=== PATIENT | female | born 1945 | race Caucasian/White ===

== ENCOUNTER 2016-06-06 13:38 | Observation (INO) ==
--- NOTE | 2016-06-06 13:51 | Emergency Department Note ---
Disposition Clinical Impression: Transient cerebral ischemia Qualifiers: Transient cerebral ischemia type: unspecified Qualified Code(s): G45.9 - Transient cerebral ischemic attack, unspecified Disposition: Admitted As Inpatient Condition: Fair Neuro HPI - General Chief Complaint: ED Neuro Symptoms/Deficit Stated Complaint: neuro symptoms LKN 1310 Time Seen by Provider: 06/06/16 13:45 Nursing Notes Reviewed: Yes Vital Signs Reviewed: Yes - History of Present Illness HPI Narrative: Chief complaint is possible stroke. History this is a 71-year-old female she said the swelling she woke up dizzy but she said that is quite frequently as she has a history of vertigo. Said about 10 minutes after one this afternoon she started having some numbness on left side her face and her left arm. No weakness now. She diseases same symptoms she had before when she had her previous stroke. The last one being in November where she had an aneurysmal bleed. She says that she has recovered well. She does have seizures since that is on Keppra. She says right now her symptoms are almost resolved. She denies any chest pain or shortness of breath. No diabetes nor hypertension or heart disease except for atrial fibrillation. She says also at the time she was on a blood thinner and they did remove her from that. Because of her risk of bleeding. Past medical history reviewed, nurse's notes reviewed medications reviewed allergies reviewed. - Related Data Allergies/Adverse Reactions: Allergies Allergy/AdvReac Type Severity Reaction Status Date / Time No Known Allergies Allergy Verified 06/06/16 13:44 Review of Systems: Positive for weakness on her left arm and numbness on the left side of her face which is resolving. All systems ED: reviewed and negative except as stated. Physical Exam Temperature is 98.3, pulse is 90, respirations are 16, BP is 138/102, sats 99%, she weighs 63.04 kg, General she is alert very pleasant and cooperative GCS is [address] and time HEENT HEENT is normocephalic PERRL EOMI, neck is supple no carotid bruits no signs of trauma Cardiovascular is a regular rate and rhythm with a heart rate of 94 consistent with atrial fibrillation Lungs are clear to auscultation bilaterally with good aeration Abdomen is soft nonsurgical good bowel sounds no masses Extremities are present 4 with good distal pulses or Refills brisk she moves all extremities has no pitting edema and has no calf tenderness dermatologic her skin is warm and dry no rash petechia or jaundice neurologic cranial nerves 2 through 12 are grossly intact she has good upper and lower motor strength some subjective weakness on the left arm. Reflexes are intact. She has no cerebellar signs. Her NIH scale is 01. Course Vital Signs Temperature 98.3 F 06/06/16 13:45 Pulse Rate 90 06/06/16 13:45 Respiratory Rate 16 06/06/16 13:45 Blood Pressure 138/102 06/06/16 13:45 O2 Sat by Pulse Oximetry 99 06/06/16 13:45 Temperature 98.3 F 06/06/16 13:45 Pulse Rate 75 06/06/16 14:42 Respiratory Rate 18 06/06/16 14:42 Blood Pressure 118/98 06/06/16 14:42 O2 Sat by Pulse Oximetry 99 06/06/16 14:42 Oxygen Delivery Oxygen Delivery Room Air Neuro Symptoms/Deficit - MDM Narrative Medical decision making narrative: At this point its uncertain if this is a stroke or TIA or something else. She is getting a stroke workup. She does not meet criteria now since she is improving for getting tPA. It is also at risk since she has had a recent aneurysmal bleed. We will contact [facility] which is our stroke center once her CT is back and read. Finger stick sugar is 1:30. Her EKG shows a atrial fibrillation, rate is 94, QRS 74, QTc is 410, no signs of acute ischemia compared this with an EKG that she had done in July and shows no changes except for rate. 1400 hrs.: I reviewed her CT and saw no signs of acute stroke or bleed. This was also confirmed by neuroradiology and they agree. Spoke with the tellastroke system at [facility]. they agree that her NIH score is 1. Does not qualify for TPA. We will finish the workup here and admit her here. Patient's in agreement with that plan. Up-to-date on her history is she has had 2 strokes in the past the last 2013 and then also in 2010 both hemorrhagic. 1440 hrs.: Patient's labs are back and looked good. Were not ago and then bring her into the hospital. Paging hospitals. Patient would like to stay here versus going to [facility]. Going to speak with neurology also about whether we should start her on aspirin or not. She is in agreement with this plan. Her critical care time exclusive A separately billable procedures is 35 minutes. 1447 hrs.: Spoke with hospitalist there going to accept the patient. Waiting on neurology's call back also. We will hold off on aspirin at this time per patient's preference. 1513 hrs.: Spoke with neurology, Dr. Estes, he said he will consult see the patient in the hospital. No further recommendations at this time. - Lab Data Result diagrams: 06/06/16 13:52 06/06/16 13:52 Lab Results 06/06/16 06/06/16 06/06/16 Range/Units 13:43 13:52 13:52 WBC 6.6 (4.3-11.1) K/mcL RBC 5.22 H (3.82-4.97) M/mcL Hgb 13.5 (11.5-15.4) g/dL Hct 42.3 (35.3-44.9) % MCV 81.0 L (83.0-100.0) fL MCH 25.9 L (28.0-33.3) pg MCHC 31.9 (31.6-35.5) g/dL RDW 15.7 H (11.5-14.5) % Plt Count 206 (140-400) K/mcL MPV 10.3 (9.4-12.4) fL Immature Gran % 0.3 (0-4) % Seg Neutrophils % 53.7 % Lymphocytes % 37.6 % Monocytes % 6.2 % Eosinophils % 1.4 % Basophils % 0.8 % Neutrophils # 3.5 (1.6-8.9) K/mcL Lymphocytes # 2.5 (0.6-4.6) K/mcL Monocytes # 0.4 (0.0-1.3) K/mcL Eosinophils # 0.1 (0.0-0.6) K/mcL Basophils # 0.1 (0.0-0.2) K/mcL PT 12.4 H (9.4-12.1) Seconds INR 1.1 APTT 28.8 (26.0-36.0) Seconds Sodium (136-145) mEq/L Potassium (3.5-4.5) mEq/L Chloride (98-109) mEq/L Carbon Dioxide (19-29) mEq/L BUN (7-20) mg/dL Creatinine (0.57-1.11) mg/dL Est GFR ( Amer) (> 60) Est GFR (Non-Af Amer) (> 60) BUN/Creatinine Ratio (6-26) Glucose (70-99) mg/dL POC Glucose 130 H (58-89) Calculated Osmolality (280-300) Calcium (8.6-10.8) mg/dL Troponin I (0-0.03) ng/mL 06/06/16 06/06/16 Range/Units 13:52 13:52 WBC (4.3-11.1) K/mcL RBC (3.82-4.97) M/mcL Hgb (11.5-15.4) g/dL Hct (35.3-44.9) % MCV (83.0-100.0) fL MCH (28.0-33.3) pg MCHC (31.6-35.5) g/dL RDW (11.5-14.5) % Plt Count (140-400) K/mcL MPV (9.4-12.4) fL Immature Gran % (0-4) % Seg Neutrophils % % Lymphocytes % % Monocytes % % Eosinophils % % Basophils % % Neutrophils # (1.6-8.9) K/mcL Lymphocytes # (0.6-4.6) K/mcL Monocytes # (0.0-1.3) K/mcL Eosinophils # (0.0-0.6) K/mcL Basophils # (0.0-0.2) K/mcL PT (9.4-12.1) Seconds INR APTT (26.0-36.0) Seconds Sodium 139 (136-145) mEq/L Potassium 3.8 (3.5-4.5) mEq/L Chloride 106 (98-109) mEq/L Carbon Dioxide 24 (19-29) mEq/L BUN 21 H (7-20) mg/dL Creatinine 0.74 (0.57-1.11) mg/dL Est GFR ( Amer) > 60 (> 60) Est GFR (Non-Af Amer) > 60 (> 60) BUN/Creatinine Ratio 28 H (6-26) Glucose 131 H (70-99) mg/dL POC Glucose (58-89) Calculated Osmolality 293 (280-300) Calcium 9.3 (8.6-10.8) mg/dL Troponin I 0.00 (0-0.03) ng/mL TPA Checklist - LKW: 3-4.5 hrs Add. Contraindications Patient/family understanding: The patient/family members have been counseled and understood the risk, benefit , and alternatives of treatment.
[2016-06-06 14:03] LABS: Basophils # 0.1 K/mcL (0.0-0.2); Basophils % 0.8 %; Eosinophils # 0.1 K/mcL (0.0-0.6); Eosinophils % 1.4 %; Hematocrit 42.3 % (35.3-44.9); Hemoglobin 13.5 g/dL (11.5-15.4); Immature Granulocytes % 0.3 % (0-4); Lymphocytes # 2.5 K/mcL (0.6-4.6); Lymphocytes % 37.6 %; Mean Corpuscular HGB Conc 31.9 g/dL (31.6-35.5); Mean Corpuscular Hemoglobin 25.9 pg (28.0-33.3); Mean Platelet Volume 10.3 fL (9.4-12.4); Monocytes # 0.4 K/mcL (0.0-1.3); Monocytes % 6.2 %; Neutrophils # 3.5 K/mcL (1.6-8.9); Red Blood Count 5.22 M/mcL (3.82-4.97); Red Cell Distribution Width 15.7 % (11.5-14.5); Segmented Neutrophils % 53.7 %
[2016-06-06 14:06] LABS: Platelet Count 206 K/mcL (140-400)
[2016-06-06 14:10] LABS: INR 1.1
[2016-06-06 14:12] LABS: Activated Partial Thrombo Time 28.8 Seconds (26.0-36.0)
[2016-06-06 14:15] LABS: Prothrombin Time 12.4 Seconds (9.4-12.1)
[2016-06-06 14:17] LABS: BUN/Creatinine Ratio 28 (6-26); Blood Urea Nitrogen 21 mg/dL (7-20); Calcium 9.3 mg/dL (8.6-10.8); Carbon Dioxide 24 mEq/L (19-29); Chloride 106 mEq/L (98-109); Glucose 131 mg/dL (70-99); Osmolality,Calculated 293 (280-300); Potassium 3.8 mEq/L (3.5-4.5); Sodium 139 mEq/L (136-145); eGFR For African Americans > 60 (> 60); eGFR For Non-African Americans > 60 (> 60)
--- NOTE | 2016-06-06 15:55 | Internal Med History&Physical ---
<Felix Alvarado - Last Filed: 06/06/16 16:57> Date of Encounter: 06/06/16 Time of Encounter: 15:41 Assessment and Plan (1) Simple partial seizure disorder Current visit: Yes Status: Acute Patient is a history of seizures since her last hemorrhagic stroke in 2013. She presented with left face numbness/tingling and left distal upper extremity numbness and tingling. This is associated with brief blurriness in her right eye this morning. Patient did not lose any consciousness, bite her tongue or lose control of her bowels or bladder. Symptoms resolved spontaneously. Patient has baseline numbness and tingling on the left side of her body, the symptoms were superimposed. Patient's home medications include Keppra 1000 mg every morning and Keppra 500 mg every afternoon. Plan: - Continue inpatient overnight monitoring. - Continue home dose of Keppra - Keppra level ordered. - Neurology has seen and evaluated the patient. - Seizure precautions. (2) Transient cerebral ischemia Current visit: Yes Status: Acute Patient's history of TIAs and 2 previous hemorrhagic strokes in 2010 and 2013. Current admission there was concern for TIA but her symptoms may be related to seizure activity. She does have irregular heart rhythm and history of atrial fibrillation. She failed warfarin therapy in the past with 2 hemorrhagic strokes which was discontinued in 2013. She currently is taking a 81 mg aspirin daily. Symptoms with current admission have resolved. Plan: - Continue 81 mg aspirin daily. - Carotid duplex bilateral ordered - Continue statin - Continue cardiac monitoring Qualifiers: Transient cerebral ischemia type: unspecified Qualified Code(s): G45.9 - Transient cerebral ischemic attack, unspecified (3) History of hemorrhagic stroke with residual hemiparesis Current visit: Yes Status: Acute Patient is a history of hemorrhagic stroke. Head CT performed upon admission with no acute intracranial abnormalities. There is mild cerebral atrophy appropriate for age. Mild chronic ischemic white matter changes also age appropriate with small old infarct of the right [place] radiata unchanged. No significant change from prior studies. (4) DVT prophylaxis Current visit: Yes Status: Acute SCDs Internal Medicine - H&P: HPI Chief complaint: Neurological deficit Admitted From: Home History of present illness: Ms. Cummings is a pleasant 71 year old female who presents from home with a chief complaint of neurological deficits. Patient states that this morning when she woke up she felt okay. She was watching TV she got up to go make lunch and as she got up she said that her right eye was blurry. This blurriness in her right eye was short-lived and resolves with under a minute. After lunch patient states of the left side of her face got numb along with left hand and arm. She denies any difficulty with speech or any loss of strength. The symptoms scared her and she decided to come to the ER. Her symptoms have all but resolved since she arrived to the emergency room. She says she has had continuous left sided tingling and numbness since her hemorrhagic stroke in 2013. Patient has had multiple TIAs in the past as well as 2 hemorrhagic strokes one in June 2010 15 November 2013. At the time of these hemorrhagic stroke she was on warfarin therapy. She says that the symptoms today felt like her TIAs and strokes in the past so she decided to come to the emergency room to be safe. Patient also states that she had seizure activity after her hemorrhagic stroke in November 2013 and she is not sure the difference between a TIA and the seizure symptoms was not sure if she was having a TIA today or seizure. Patient also has a history of A. fib which is currently being treated with cardizem. She was previously on anticoagulation (warfarin) but has since been discontinued since she had the 2 strokes. Since discontinuation of warfarin therapy she has been on 81 mg aspirin which he takes daily. She has had anginal-like symptoms in the past and she had a heart catheter done but no blockages were found and she was told that she had a "stiff heart". Patient says that she was sick about a week ago she says she had a cold she admits to dry cough but denies any fever chills nausea vomiting diarrhea constipation headache or abdominal pain. Past Med Surg Social Fam HX - Past Medical History Source: patient Medical history: atrial fibrillation (No longer anticoagulation due to previous hemorrhagic strokes), CVA (2 previous hemorrhagic strokes one in June 2010 and the other in May 2013), hypertension, seizures (Patient had one seizure after her second hemorrhagic stroke in November 2013 unsure if she has had any seizures since then), TIA (Patient states that she has had multiple TIAs prior to her strokes) Psychiatric history: no psych history - Past Surgical History Surgical History: herniorrhaphy (Right inguinal hernia repair at age 8), hip replacement (Left total hip replacement), orthopedic, other (Previous right rotator cuff repair, right Achilles repair, bilateral bunion surgeries) - Social History Smoking Status: Never smoker Smokeless Tobacco Status: No Alcohol use: none Drug use: none Current living situation: Home - Independent, With Family (Lives with ) Activity Level: Independent ambulation Internal Medicine - H&P: Meds Alendronate Sodium [Fosamax] 70 mg PO MO 06/06/16 [History] Aspirin [Lo-Dose Aspirin EC] 81 mg PO QAM 06/06/16 [History] Calcium Carbonate [Calcium] 600 mg PO QAM 06/06/16 [History] Diltiazem CD (24hr) [Cardizem CD] 120 mg PO QAM 06/06/16 [History] LevETIRAcetam [Levetiracetam] 1,000 mg PO QAM 06/06/16 [History] LevETIRAcetam [Levetiracetam] 500 mg PO QPM 06/06/16 [History] Metoprolol XL (24 HR) Succ [Toprol XL] 50 mg PO QAM 06/06/16 [History] Multivitamin [One Daily Essential] 1 tab PO QAM 06/06/16 [History] Simvastatin [Zocor] 10 mg PO QPM 06/06/16 [History] Allergies No Known Allergies Allergy (Verified 06/06/16 13:44) All Systems PM: A 10-system review of systems was performed and is negative for pertinent findings except as documented above in the HPI. - EENT Eyes: blurry vision (Blurry vision in right eye this morning that has since resolved) Ears: no ear discharge, no ear pain, no tinnitus Nose, mouth and throat: no dysphagia, no nasal discharge, no neck pain, no sore throat - Cardiovascular Cardiovascular ROS IM: irregular heart rhythm (Patient complains of numbness in her left face and left arm earlier the day that has since resolved), no chest pain, no diaphoresis, no dyspnea, no lightheadedness, no palpitations, no syncope - Respiratory Respiratory: no cough, no dyspnea, no wheezing, no excessive phlegm production - Gastrointestinal Gastrointestinal: no abdominal pain, no diarrhea, no hematemesis, no hematochezia, no melena, no nausea, no vomiting - Genitourinary Genitourinary: no change in urinary stream, no dysuria, no flank pain, no hematuria - Musculoskeletal Musculoskeletal ROS IM: no numbness, no tingling - Integumentary Integumentary IM: no rash, no unusual bruising - Neurological Neurological ROS: numbness (Patient of present illness earlier in the day that has since resolved) - Hematologic/Lymphatic Hematologic/Lymphatic: no easy bruising - Constitutional Vitals: Temp Pulse Resp BP Pulse Ox 98.3 F 75 18 122/95 99 06/06/16 13:45 06/06/16 14:42 06/06/16 15:27 06/06/16 15:27 06/06/16 14:42 General appearance: Present: cooperative, pleasant, no acute distress - Head Head exam: Present: atraumatic, normocephalic - Eye Eye exam: Present: PERRL, conjuntiva pink, sclera anicteric. Absent: EOMI ( Right eye does not abduct. Patient states that she has had a "lazy eye" since childhood) Pupils: Present: PERRL - Neck Neck exam general surgery: Present: supple, trachea midline. Absent: lymphadenopathy - Cardiovascular Cardiovascular exam: Present: irregular rhythm. Absent: diastolic murmur, gallop, rubs, systolic murmur - GI/Abdominal GI/Abdominal exam: Present: normal bowel sounds, soft, no peritoneal signs. Absent: distended, tenderness - Extremities Exam Extremities exam: Present: warm, radial pulses palpable and symetrical. Absent : calf tenderness, cyanotic, pedal edema - Neurological Exam Neurological exam: Present: alert, CN II-XII intact, oriented X3, reflexes normal, no focal deficits, strengths equal and symetr throughout. Absent: pronater drift, facial droop, speech deficit - Expanded Neurological Exam Neurological exam expanded: Present: protecting the airway. Absent: expressive aphasia, memory loss-recent event, memory loss-remote event Patient oriented to: Present: person, place, time Neuro motor strength exam: LUE: 5, RUE: 5, LLE: 5, RLE: 5 DTR: achilles tendon (L): 2+, achilles tendon (R): 2+, bicep (L): 2+, bicep (R) : 2+, patellar (L): 2+, patellar (R): 2+ Coma Scale Eye Opening: Spontaneous Coma Scale Motor Response: Obeys Commands Coma Scale Verbal Response: Oriented Coma Scale Total: 15 - Psychiatric Psychiatric exam: Present: normal affect, normal mood - Skin Skin exam: Present: dry, intact Internal Med - H&P Results - Labs CBC & Chem 7: 06/06/16 13:52 06/06/16 13:52 <Joe Wharton Rey - Last Filed: 06/06/16 19:14> Date of Encounter: 06/06/16 Assessment and Plan (1) Simple partial seizure disorder Current visit: Yes Status: Acute (2) Transient cerebral ischemia Current visit: Yes Status: Acute Qualifiers: Transient cerebral ischemia type: unspecified Qualified Code(s): G45.9 - Transient cerebral ischemic attack, unspecified (3) Atrial fibrillation Current visit: Yes Status: Acute Qualifiers: Atrial fibrillation type: chronic Qualified Code(s): I48.2 - Chronic atrial fibrillation (4) HTN (hypertension) Current visit: Yes Status: Acute Qualifiers: Hypertension type: essential hypertension Qualified Code(s): I10 - Essential (primary) hypertension (5) History of hemorrhagic stroke with residual hemiparesis Current visit: Yes Status: Acute Internal Medicine - H&P: HPI History of present illness: Ms. Cummings is a 71 year old female All Systems PM: A 10-system review of systems was performed and is negative for pertinent findings except as documented above in the HPI. - Constitutional Vitals: Temp Pulse Resp BP Pulse Ox 98.2 F 80 16 130/92 99 06/06/16 17:20 06/06/16 17:20 06/06/16 17:20 06/06/16 17:20 06/06/16 17:20 Internal Med - H&P Results - Labs CBC & Chem 7: 06/06/16 13:52 06/06/16 13:52 - Attending Attestation I examined this patient and my medical decision-making was reviewed with the Resident Physician on 06/06/16. I agree with the documented findings, disposition and treatment plan as described except to the extent set forth below. Ms. Cummings is 71y/o female with hx of hemorrhagic CVA twice presented to ED with L face and LUE parasthesias. She was evaluated in ED and placed in observation. Currently her symptoms are nearly gone. No new symptoms. No CP or SOB. Currently on Keppra. Appreciate neuro input. Exam Alert. Comfortable Heart irreg No wheeze Strength and sensation equal I/P 1. Probable simple partial seizure 2. Possible TIA 3. HTN 4. Chr a fib Further diagnoses and plan as above.
--- NOTE | 2016-06-06 16:45 | Neurology - Consult Note ---
Date of Encounter: 06/06/16 Time of Encounter: 16:43 Assessment and Plan (1) Simple partial seizure disorder Current Visit: Yes Status: Acute Differential diagnosis here includes simple partial seizure, versus transient ischemic attack, versus perhaps anxiety related symptoms. Transient ischemia is probably lower on the differential because she has had multiple episodes that are similar in nature however the CT scans have not changed in recent times. Plan he is to simply check a Keppra level, and to obtain carotid Doppler studies. She will maintain aspirin 81 mg daily. She is back to her normal baseline function therefore no therapeutic suggestions necessary. I intend to follow up with her my office after discharge. If her carotid duplex Doppler study is normal she may be discharged in the morning. History of Present Illness HPI: Ms. Cummings is a 71 year old female who is seen for neurological evaluation secondary to symptoms of transient paresthesias of the left face and left arm. At times she was simply sitting and relaxing and watching television. She was not active doing anything in particular. Symptoms came on rather abruptly. There have been some transient confusion. The total duration of the episode lasted for about 15-20 minutes. She denied any pain. She may have had some blurred vision of the right eye. She denied any weakness of the upper or lower extremities. Denied any balance or gait difficulties. Currently she feels back to her normal baseline. She has a congenital right sixth nerve palsy. Past Med Surg Social Fam HX - Past Medical History Medical history: atrial fibrillation (No longer anticoagulation due to previous hemorrhagic strokes), CVA (2 previous hemorrhagic strokes one in June 2010 and the other in May 2013), hypertension, seizures (Patient had one seizure after her second hemorrhagic stroke in November 2013 unsure if she has had any seizures since then), TIA (Patient states that she has had multiple TIAs prior to her strokes) Psychiatric history: no psych history - Past Surgical History Surgical History: herniorrhaphy (Right inguinal hernia repair at age 8), hip replacement (Left total hip replacement), orthopedic, other (Previous right rotator cuff repair, right Achilles repair, bilateral bunion surgeries) - Social History Smoking Status: Never smoker Smokeless Tobacco Status: No Alcohol use: none Drug use: none Medications and Allergies Alendronate Sodium [Fosamax] 70 mg PO MO 06/06/16 [History] Aspirin [Lo-Dose Aspirin EC] 81 mg PO QAM 06/06/16 [History] Calcium Carbonate [Calcium] 600 mg PO QAM 06/06/16 [History] Diltiazem CD (24hr) [Cardizem CD] 120 mg PO QAM 06/06/16 [History] LevETIRAcetam [Levetiracetam] 1,000 mg PO QAM 06/06/16 [History] LevETIRAcetam [Levetiracetam] 500 mg PO QPM 06/06/16 [History] Metoprolol XL (24 HR) Succ [Toprol XL] 50 mg PO QAM 06/06/16 [History] Multivitamin [One Daily Essential] 1 tab PO QAM 06/06/16 [History] Simvastatin [Zocor] 10 mg PO QPM 06/06/16 [History] Allergies No Known Allergies Allergy (Verified 06/06/16 13:44) All Systems: A 10-system review of systems was performed and is negative for pertinent findings except as documented above in the HPI. Review of Systems: 10 point review of systems is consistent with a history of present illness and otherwise negative. Physical Examination - Vital Signs Vital Signs: Initial Vital Signs Temp Pulse Resp BP Pulse Ox 98.3 F 90 16 138/102 99 06/06/16 13:45 06/06/16 13:45 06/06/16 13:45 06/06/16 13:45 06/06/16 13:45 - Exam Exam: For mental status functions Gale is awake and alert and oriented 3. She follows commands and answers questions appropriately. There is no acknowledging aphasia or apraxia. Pupils are equal and reactive to light and accommodation. Extraocular motility of the left eye is intact. She has a congenital sixth nerve palsy on the right. Sensation to the face is intact. However she has a nonphysiologic discrepancy in the ability to identify vibration on the left skull versus the right skull. She seems to feel that his decreased on the left. Motor function of the face is symmetric bilaterally. No facial asymmetry is identified. Hearing is intact symmetrically. Tongue is midline. - Neurologic Detailed motor examination: full strength in all major muscle groups Detailed sensory examination: intact Reflex and gait examination: intact Reflexes: Biceps: 1+, Triceps: 1+, Brachioradialis: 1+, Patella: 1+, Achilles: 1 + Cerebellar examination: no dysmetria, performs finger to nose and heel to teague symmetrically without ataxia, no gait ataxia, no truncal ataxia, no difficulty with rapid alternating movements Results - Laboratory Findings CBC and BMP: 06/06/16 13:52 06/06/16 13:52 Abnormal lab findings: Abnormal lab results RBC 5.22 M/mcL (3.82-4.97) H 06/06/16 13:52 MCV 81.0 fL (83.0-100.0) L 06/06/16 13:52 MCH 25.9 pg (28.0-33.3) L 06/06/16 13:52 RDW 15.7 % (11.5-14.5) H 06/06/16 13:52 PT 12.4 Seconds (9.4-12.1) H 06/06/16 13:52 BUN 21 mg/dL (7-20) H 06/06/16 13:52 BUN/Creatinine Ratio 28 (6-26) H 06/06/16 13:52 Glucose 131 mg/dL (70-99) H 06/06/16 13:52 POC Glucose 130 (58-89) H 06/06/16 13:43 Consult Discharge Plan - Plan Referrals: NO,PCP [Primary Care Provider] -
[2016-06-06] MEDS ORDERED: Naloxone 0.4 MG/ML INJ IVP PRN (16:52)
[2016-06-06] MEDS ORDERED: Acetaminophen 325 MG TABLET PO PRN (16:52)
[2016-06-06] MEDS ORDERED: Ondansetron 4 MG/2 ML VIAL IVP PRN (16:52)
[2016-06-06] MEDS ORDERED: levETIRAcetam 250 MG TABLET PO SCH (18:00)
[2016-06-06] MEDS: Pantoprazole 40 MG VIAL IVP SCH (18:38)
--- NOTE | 2016-06-06 22:07 | Carotid Imaging Report ---
Carotid Duplex Patient Name:Gale Cummings Order Number:[id number] Procedure Date:06/06/2016 Date:5Age:71 yrs Gender:Female Rt.BP:130 / 92 mmHgHeart Rate: Location:[facility] Room #: 2NE30 Auto Garage Mechanic:Sabina Hoffman RDCS Referring MD:Felix Alvarado DO fibrous wallboard inspector:None Reading MD:Alexander Fuller MD Primary Indications:Stroke like symptoms Risk Factors Yes/No Hypertension Yes Hypercholesterolemia Yes Hx of CVA Yes Hx of TIA Yes Impressions: The bilateral carotid arteries are normal throughout. Findings Carotid Duplex: Jeffers scale imaging combined with Doppler flow analysis suggests normal findings bilaterally. Right: The right proximal common carotid artery has a PSV of 55 cm/s and a EDV of 17 cm/s. The right mid common carotid artery has a PSV of 61 cm/s and a EDV of 21 cm/s. The right distal common carotid artery has a PSV of 44 cm/s and a EDV of 16 cm/s. The right bifurcation has a PSV of 48 cm/s and a EDV of 11 cm/s. The right proximal internal carotid artery has a PSV of 35 cm/s and a EDV of 13 cm/s. The right mid internal carotid artery has a PSV of 56 cm/s and a EDV of 18 cm/s. The right distal internal carotid artery has a PSV of 72 cm/s and a EDV of 30 cm/s. The right eca has a PSV of 92 cm/s and a EDV of 16 cm/s. The right vertebral artery has a PSV of 54 cm/s and a EDV of 11 cm/s. There is antegrade spectral Doppler flow patterns. Left: The left proximal common carotid artery has a PSV of 67 cm/s and a EDV of 18 cm/s. The left mid common carotid artery has a PSV of 65 cm/s and a EDV of 19 cm/s. The left distal common carotid artery has a PSV of 60 cm/s and a EDV of 21 cm/s. The left bifurcation has a PSV of 44 cm/s and a EDV of 13 cm/s. The left proximal internal carotid artery has a PSV of 39 cm/s and a EDV of 13 cm/s. The left mid internal carotid artery has a PSV of 56 cm/s and a EDV of 22 cm/s. The left distal internal carotid artery has a PSV of 65 cm/s and a EDV of 28 cm/s. The left eca has a PSV of 91 cm/s and a EDV of 15 cm/s. The left vertebral artery has a PSV of 80 cm/s and a EDV of 21 cm/s. There is antegrade spectral Doppler flow patterns. Prior Study: No prior study available for comparison. Carotid Results Right PSV EDV Assessment Proximal CCA 55 17 Mid CCA 61 21 Distal CCA 44 16 Bifurcation 48 11 Proximal ICA 35 13 Mid ICA 56 18 Distal ICA 72 30 ECA 92 16 Vertebral Artery 54 11 Antegrade Flow Left PSV EDV Assessment Proximal CCA 67 18 Mid CCA 65 19 Distal CCA 60 21 Bifurcation 44 13 Proximal ICA 39 13 Mid ICA 56 22 Distal ICA 65 28 ECA 91 15 Vertebral Artery 80 21 Antegrade Flow Ratio's Right ICA/CCA Ratio: 1.18 ICA/CCA Values: 72/61 Left ICA/CCA Ratio: 1.00 ICA/CCA Values: 65/65 Updated by Alexander Fuller MD on 06/06/2016 10:02:27 PM electronically signed on 06/06/2016 10:02:51 PM with status of Final
[2016-06-07 05:17] LABS: Basophils # 0.1 K/mcL (0.0-0.2); Basophils % 0.9 %; Eosinophils # 0.1 K/mcL (0.0-0.6); Eosinophils % 1.7 %; Hematocrit 41.1 % (35.3-44.9); Hemoglobin 13.1 g/dL (11.5-15.4); Immature Granulocytes % 0.3 % (0-4); Lymphocytes # 2.5 K/mcL (0.6-4.6); Lymphocytes % 42.4 %; Mean Corpuscular HGB Conc 31.9 g/dL (31.6-35.5); Mean Corpuscular Hemoglobin 25.8 pg (28.0-33.3); Mean Corpuscular Volume 80.9 fL (83.0-100.0); Mean Platelet Volume 10.4 fL (9.4-12.4); Monocytes # 0.5 K/mcL (0.0-1.3); Monocytes % 8.4 %; Neutrophils # 2.7 K/mcL (1.6-8.9); Platelet Count 195 K/mcL (140-400); Red Blood Count 5.08 M/mcL (3.82-4.97); Red Cell Distribution Width 15.8 % (11.5-14.5); Segmented Neutrophils % 46.3 %
[2016-06-07 05:35] LABS: Alanine Aminotransferase 18 Units/L (0-55); Albumin 3.5 g/dL (3.5-5.0); Albumin/Globulin Ratio 1.2 (1.1-2.2); Alkaline Phosphatase 48 Units/L (38-126); Aspartate Amino Transferase 17 Units/L (5-34); BUN/Creatinine Ratio 21 (6-26); Bilirubin,Total 0.4 mg/dL (0.2-1.2); Blood Urea Nitrogen 15 mg/dL (7-20); Calcium 8.9 mg/dL (8.6-10.8); Carbon Dioxide 21 mEq/L (19-29); Chloride 111 mEq/L (98-109); Chol/HDL Ratio 2.4 (0-4.9); Cholesterol 155 mg/dL (< 200); Glucose 95 mg/dL (70-99); HDL Cholesterol 65 mg/dL (40-59); LDL Cholesterol,Calculated 75 mg/dL (0-99); Osmolality,Calculated 295 (280-300); Potassium 3.6 mEq/L (3.5-4.5); Sodium 142 mEq/L (136-145); Total Protein 6.5 g/dL (6.0-8.3); Triglycerides 73 mg/dL (< 150); eGFR For African Americans > 60 (> 60); eGFR For Non-African Americans > 60 (> 60)
[2016-06-07] MEDS ORDERED: levETIRAcetam 250 MG TABLET PO SCH (09:00)
[2016-06-07] MEDS ORDERED: Metoprolol XL (24 HR) Succ 50 MG TAB.ER.24H PO SCH (09:00)
[2016-06-07] MEDS ORDERED: Aspirin Enteric Coated 81 MG Tablet PO SCH (09:00)
[2016-06-07] MEDS ORDERED: Diltiazem CD (24hr) 120 MG CAPSULE PO SCH (09:00)
[2016-06-07] MEDS: Pantoprazole 40 MG VIAL IVP SCH (09:12)
[2016-06-07 11:33] VITALS: BP 131/94
--- NOTE | 2016-06-07 12:11 | Discharge Summary ---
Date of Encounter: 06/07/16 Time of Encounter: 12:11 - Discharge Diagnosis (1) Simple partial seizure disorder Priority: Primary Status: Acute (2) Transient cerebral ischemia Priority: Primary Status: Acute Qualifiers: Qualified Code(s): G45.9 - Transient cerebral ischemic attack, unspecified (3) Atrial fibrillation Priority: Secondary Status: Chronic Qualifiers: Qualified Code(s): I48.2 - Chronic atrial fibrillation (4) HTN (hypertension) Priority: Secondary Status: Chronic Qualifiers: Qualified Code(s): I10 - Essential (primary) hypertension (5) History of hemorrhagic stroke with residual hemiparesis Priority: Secondary Status: Chronic (6) Visual changes Priority: Secondary Status: Acute - Discharge Medications Home Medications: Alendronate Sodium [Fosamax] 70 mg PO MO 06/06/16 [History] Aspirin [Lo-Dose Aspirin EC] 81 mg PO QAM 06/06/16 [History] Calcium Carbonate [Calcium] 600 mg PO QAM 06/06/16 [History] Diltiazem CD (24hr) [Cardizem CD] 120 mg PO QAM 06/06/16 [History] LevETIRAcetam [Levetiracetam] 1,000 mg PO QAM 06/06/16 [History] LevETIRAcetam [Levetiracetam] 500 mg PO QPM 06/06/16 [History] Metoprolol XL (24 HR) Succ [Toprol Xl] 50 mg PO QAM 06/06/16 [History] Multivitamin [One Daily Essential] 1 tab PO QAM 06/06/16 [History] Simvastatin [Zocor] 10 mg PO QPM 06/06/16 [History] Allergies/Adverse Reactions: Allergies No Known Allergies Allergy (Verified 06/06/16 13:44) Procedures/tests Complete & Pending: Procedures Performed prior 72 hours Category Date Time Status MR head/brain wo con [MR] Routine MRI 06/07/16 11:52 Ordered EV carotid duplex imaging BI Routine Y 06/06/16 16:51 Completed Date of admission: 06/06/16 14:51 Primary care physician: PCP NO Consults: 06/06/16 14:52 Consult to Neurology [CONS] Routine Consulting Provider: Neurology [facility] Reason for Consult: TIA vs CVA Time Notified: 14:52 Call Completed: Yes Discharging clinician: Joe Wharton Anticipated date of discharge: 06/07/16 - Patient Status Disposition: Home, Self-Care Condition: Good Functional capacity at discharge: independent ambulation Overall status at discharge: patient is back to baseline - Discharge Instructions Follow Up With: POLLY,PCP [Primary Care Provider] - Additional Instructions: Follow up with Dr. Estes in 1-2- weeks - Diet and Activity Activity: resume usual activities as tolerated Diet: advance to your usual diet Hospital course: Ms. Cummings is a 71 year old female with history of hemorrhagic CVA x2 in past presented to ED with parasthesias. She was evaluated and subsequently placed in observation for further evaluation and treatment. Ms. Cummings was placed in observation on med tele. She was continued on her home medications. Gradually her symptoms improved. She was evaluated by neurology and carotid doppler was arranged. The presumption was a simple partial seizure. Carotid dopplers ultimately were negative. In the AM of 06/07/16 she described some visual changes. MRI of head was done which showed no new changes. At that time she was felt stable for discharge home with outpatient follow up. I did discuss with patient and her that if she has any new visual symptoms that she should go to ED to be evaluated. She is going to make an eye appt on Thursday and I gave her my card to have them contact me if anything else is needed. - Time Spent with Patient Total time spent providing and/or coordinating discharge services: 40min - Constitutional Vitals: Temp Pulse Resp BP Pulse Ox 98.2 F 83 15 131/94 97 06/07/16 11:31 06/07/16 11:31 06/07/16 11:31 06/07/16 11:31 06/07/16 11:31 General appearance: Present: cooperative, pleasant, no acute distress - Head Head exam: Present: normocephalic - Eye Eye exam: Present: EOMI, normal appearance, conjuntiva pink Pupils: Present: PERRL - ENT ENT exam: Present: mucous membranes dry - Respiratory Respiratory exam: Present: CTAB. Absent: rhonchi, wheezes - Cardiovascular Cardiovascular exam: Present: irregular rhythm. Absent: tachycardia - GI/Abdominal GI/Abdominal exam: Present: soft. Absent: tenderness - Extremities Exam Extremities exam: Present: warm. Absent: pedal edema - Neurological Exam Neurological exam: Present: alert, oriented X3, no focal deficits - Psychiatric Psychiatric exam: Present: normal affect, normal mood - Skin Skin exam: Present: warm. Absent: rash - VTE Documentation of Mechanical Device: Graduated compression elastic hosiery
--- NOTE | 2016-06-07 16:39 | Neurology Progress Note ---
Date of Encounter: 06/07/16 Time of Encounter: 16:30 Assessment and Plan (1) Simple partial seizure disorder Current Visit: Yes Status: Acute (2) Visual disturbance of one eye Current Visit: Yes Status: Acute Gale has developed an acute deficit of the right eye. This only involves the right eye and is therefore a prechiasmatic event. It does not seem to be consistent with amaurosis fugax. Perhaps this is a refractory or retinal problem. I will reevaluate her at your request. Consider Opthalmology eval. Subjective Interval history: I had the pleasure of following up with Gale today regarding an acute visual disturbance involving the right eye. She describes a blemish in the visual field of the right eye that looks like a " fold" She denies any pain. The defect does not seem to float or mariana. She denies amaurosis fugax. She denies any involvement of the left eye. Denies any new somatic sx. I did review the MRI which does not reveal any evidence of an acute process. Neuroloic exam is unchanged in comparison to yesterday Objective - Constitutional Vitals: Temp Pulse Resp BP Pulse Ox 98.2 F 83 15 131/94 97 06/07/16 11:31 06/07/16 11:31 06/07/16 11:31 06/07/16 11:31 06/07/16 11:31 - Neurological Exam Motor Examination: Present: full strength in all major muscle groups Sensation intact: Present: intact Reflex and gait examination: intact Cranial nerve examination: Present: PERRL, corneal reflexes brisk symmetrically , sensory to face intact, mastication intact, no facial asymmetry is present, no dysarthria Cerebellar examination: Present: no dysmetria, performs finger to nose and heel to teague symmetrically without ataxia, no gait ataxia, no truncal ataxia, no difficulty with rapid alternating movements - VTE Documentation of Mechanical Device: Graduated compression elastic hosiery Results - Laboratory Findings CBC and BMP: 06/07/16 04:55 06/07/16 04:55 Abnormal lab findings: Abnormal lab results RBC 5.08 M/mcL (3.82-4.97) H 06/07/16 04:55 MCV 80.9 fL (83.0-100.0) L 06/07/16 04:55 MCH 25.8 pg (28.0-33.3) L 06/07/16 04:55 RDW 15.8 % (11.5-14.5) H 06/07/16 04:55 PT 12.4 Seconds (9.4-12.1) H 06/06/16 13:52 Chloride 111 mEq/L (98-109) H 06/07/16 04:55 POC Glucose 130 (58-89) H 06/06/16 13:43 HDL Cholesterol 65 mg/dL (40-59) H 06/07/16 04:55 Consult Discharge Plan - Plan Referrals: NO,PCP [Primary Care Provider] -
== END 2016-06-07 18:30 | disposition home or self-care (01) ==
LOC: EMEROO 13:38 → 2NENU 13:38
PROVIDERS: ADMIT Internal Medicine; ATTEND Internal Medicine

== ENCOUNTER 2018-12-13 21:49 | Observation (INO) ==
--- NOTE | 2018-12-13 22:19 | Emergency Department Note ---
Disposition Clinical Impression: Facial numbness, Tingling of both upper extremities Disposition: Still a Patient Condition: Good Referrals: Felix Flores DO [Primary Care Provider] - Forms: ED Satisfaction Letter Time of Disposition: 00:31 General Adult HPI - General Chief complaint: ED Neuro Symptoms/Deficit Stated complaint: possible stroke Time Seen by Provider: 12/13/18 22:00 Source: EMS Limitations: no limitations Nursing Notes Reviewed: Yes Vital Signs Reviewed: Yes - History of Present Illness HPI Narrative: 73-year-old female who presents emergency department with complaints of left- sided facial tingling and bilateral upper extremity tingling. This occurred just prior to arrival and has since resolved per the patient. Patient states t hat she was breathing quite quickly felt anxious and had occurrence of the symptoms. She states she has had multiple previous hemorrhagic strokes and was concerned about possible stroke but also believes it may be related to her anxiety as she has had panic attacks previously and she did state she was hyperventilating. The patient has no symptoms at this time. She did recently have surgery of her left hip recently and has difficulty moving the splint following surgery. She otherwise states she has had no fever, chills, chest pain, shortness of breath, nausea, weakness. is available and states she has had no slurred speech, focal weakness, or confusion. Pain Scale: 0 - Related Data Home Medications Medication Instructions Recorded Confirmed Alendronate Sodium [Fosamax] 70 mg PO MO 06/06/16 10/27/17 Aspirin [Lo-Dose Aspirin EC] 81 mg PO QAM 06/06/16 10/27/17 Calcium Carbonate [Calcium] 600 mg PO QAM 06/06/16 10/27/17 Diltiazem CD (24hr) [Cardizem CD] 120 mg PO QAM 06/06/16 10/27/17 Metoprolol XL (24 HR) Succ [Toprol 50 mg PO QAM 06/06/16 10/27/17 Xl] Multivitamin [One Daily Essential] 1 tab PO QAM 06/06/16 10/27/17 Simvastatin [Zocor] 10 mg PO QPM 06/06/16 10/27/17 levETIRAcetam [Levetiracetam] 1,000 mg PO QAM 06/06/16 10/27/17 levETIRAcetam [Levetiracetam] 500 mg PO QPM 06/06/16 10/27/17 Allergies Allergy/AdvReac Type Severity Reaction Status Date / Time No Known Allergies Allergy Verified 10/27/17 08:28 Review of Systems: ROS per history of present illness, all other systems reviewed and negative or normal. All systems ED: reviewed and negative except as stated. Review of Systems: As Per HPI Past Medical History - Past Medical History Medical history: Reports: atrial fibrillation, CVA, hypertension, seizures, TIA Surgical history: Reports: herniorrhaphy, hip replacement, orthopedic, other Psychiatric history: Reports: no psych history TRAINING SPECIALIST history: Reports: no TRAINING SPECIALIST history - Social History Smoking Status: Never smoker Smokeless Tobacco Status: No Alcohol use: Reports: none Drug use: Reports: none Physical Exam General: Conversant. No apparent distress. Follow commands. Appears stated age. Neck: No JVD. Trachea midline. Neck supple. Eyes: PERRL. No scleral icterus. HENT: Normocephalic and atraumatic. Moist mucus membranes. Cardiovascular: Regular rate and rhythm. Normal S1 and S2. No murmurs appreciated. Normal capillary refill. Extremities well perfused with 2+ distal pulses bilaterally. No edema. Pulmonary: Normal and equal breath sounds bilaterally, anteriorly and posteriorly. No wheezes, rales, or rhonchi. Not in respiratory distress. Speaks in full sentences. Abdomen: Soft, nondistended, and tontender. No bruits or masses. No guarding. Neuro: Alert and oriented to person, place, and time. CN II-XII tested and grossly intact. No hemineglect. Speech is fluid and without slurring. Sensory: Sensation intact to light touch in all extremities. Motor: Normal tone and bulk. No pronator drift. 5/5 strength in LUE 5/5 strength in RUE 5/5 strength in LLE 5/5 strength in RLE Coordination: Finger to nose and heel to teague testing intact bilaterally. Reflexes: Brachioradialis, biceps, and patellar reflexes 2+ and symmetric bilaterally. Skin: No rashes noted on visualized skin. Musculoskeletal: No bony abnormalities visualized. Moves all extremities. Psych: Normal mood. Pleasant. Makes appropriate eye contact. - General Limitations: no limitations General appearance: alert, in no apparent distress Course - Reevaluation(s) Reevaluation #1: Patient attempting to provide urine sample. She is anxious, tachycardic, and tearful on exam. Will treat for anxiety. Time: 23:29 Reevaluation #2: Patient reassessed and continues to be anxious, restless, picking at the equipment and slightly tearful on exam. She does not believe this was a stroke and does believe this is secondary to her hyperventilating and anxiety. Has been requests admission as she continues to be persistently anxious at home but he is also agreement that this was likely not a stroke consistent with her previous symptoms. She was given 1 mg by mouth Ativan. We will repeat dosing the IM and reassessed the patient. Encouraged her to follow up with a therapist or psychiatrist or with her primary care physician as this does appear to be a long-standing and chronic issue. Time: 00:27 Vital Signs Temperature 97.7 F 12/13/18 21:57 Pulse Rate 87 12/13/18 21:57 Respiratory Rate 20 12/13/18 21:57 Blood Pressure 133/85 12/13/18 21:57 O2 Sat by Pulse Oximetry 99 12/13/18 21:57 Temperature 97.7 F 12/13/18 21:57 Pulse Rate 87 12/13/18 21:57 Respiratory Rate 20 12/13/18 21:57 Blood Pressure 133/85 12/13/18 21:57 O2 Sat by Pulse Oximetry 99 12/13/18 21:57 Oxygen Delivery Oxygen Delivery Room Air Medical Decision Making - [facility] Narrative Medical decision making narrative: 73-year-old female with history of multiple strokes who presents emergency department with concern for left-sided facial and bilateral upper extremity numbness. Symptoms started just prior to arrival but has since resolved. EMS notes glucose in the 80s. NIH performed immediately upon arrival and the patient has an NIH score of 0. Her symptoms have completely resolved. She is alert and oriented 3 without facial droop, slurred speech, decreased sensation or focal neurologic deficits. Stroke alert was not initiated given the resolution of symptoms. The patient did have a stroke evaluation including CT head, CBC, BMP, urinalysis, EKG. CT head shows no evidence of acute intracranial pathology including hemorrhage. EKG shows no acute abnormalities. Laboratory evaluation shows no significant leukocytosis, anemia, electrolyte abnormality. No evidence of urinary tract infection. The patient states she became significantly anxious and tearful. She notes that she was never told she has anxiety but do believe the majority of her symptoms are stemming from anx iety and confirms she has been this anxious at home for quite some time. They both are in agreement that this likely was not secondary to acute stroke. One dose of Ativan given to the patient here in the emergency department. She was reassessed and continues to be anxious. Will trial repeat dosing of ativan here in the ED. Patients disposition pending. Please see Dr. Almeida note for final disposition. - Medical Records Medical records reviewed: Yes I reviewed the patient's medical records. - Lab Data Lab results reviewed: Yes I reviewed the patient's lab results. Result diagrams: 12/13/18 22:07 12/13/18 22:07 Lab Results 12/13/18 12/13/18 12/13/18 Range/Units 22:07 22:07 22:07 WBC 6.8 (4.3-11.1) K/mcL RBC 4.42 (3.82-4.97) M/mcL Hgb 11.6 (11.5-15.4) g/dL Hct 36.8 (35.3-44.9) % MCV 83.3 (83.0-100.0) fL MCH 26.2 L (28.0-33.3) pg MCHC 31.5 L (31.6-35.5) g/dL RDW 15.2 H (11.5-14.5) % Plt Count 228 (140-400) K/mcL MPV 10.2 (9.4-12.4) fL Immature Gran % 0.6 (0-4) % Seg Neutrophils % 60.9 % Lymphocytes % 30.0 % Monocytes % 6.0 % Eosinophils % 1.8 % Basophils % 0.7 % Neutrophils # 4.2 (1.6-8.9) K/mcL Lymphocytes # 2.0 (0.6-4.6) K/mcL Monocytes # 0.4 (0.0-1.3) K/mcL Eosinophils # 0.1 (0.0-0.6) K/mcL Basophils # 0.1 (0.0-0.2) K/mcL PT 11.6 (9.4-12.1) Seconds INR 1.0 APTT 32.0 (26.0-36.0) Seconds Sodium 140 (136-145) mEq/L Potassium 3.6 (3.5-5.1) mEq/L Chloride 110 H (98-107) mEq/L Carbon Dioxide 20 L (23-29) mEq/L BUN 17 (8-23) mg/dL Creatinine 0.74 (0.60-1.20) mg/dL Est GFR ( Amer) > 60 (> 60) Est GFR (Non-Af Amer) > 60 (> 60) BUN/Creatinine Ratio 23 (6-26) Glucose 106 H (70-105) mg/dL Calculated Osmolality 292 (280-300) Calcium 9.2 (8.6-10.3) mg/dL Magnesium 2.3 (1.6-2.6) mg/dL TSH 3.678 (0.340-5.600) mcIU/mL - Radiology Data Radiology results reviewed: Yes I reviewed the patient's radiology results. Head CT 12/13/18 22:17 IMPRESSION: No acute intracranial abnormality. D/ / Darrin Dinero / Darrin Dinero Interpreting Provider: Darrin Dineor - EKG Data EKG #1 EKG attestation: Yes I reviewed and interpreted this EKG. EKG results narrative: Atrial fibrillation rate of 86. No acute ischemic ST or T wave abdomen rounded. There is slight T-wave inversions in V1. Compared with prior from 07/25/14 there are no significant changes. T wave abnormality seen on this EKG. Attestation Statement - Attestation Attestation: I, Eric Ojeda DO, examined this patient [id number] and my medical decision-making was reviewed with Dr. Radha Balderas, Resident Physician. I agree with the documented findings, disposition and treatment plan as described except to the extent set forth below. I personally supervised and was present for the lemos/critical portions of the procedures completed by the resident documented below. Please see my progress notes for details.
[2018-12-13 22:23] LABS: Basophils # 0.1 K/mcL (0.0-0.2); Basophils % 0.7 %; Eosinophils # 0.1 K/mcL (0.0-0.6); Eosinophils % 1.8 %; Hematocrit 36.8 % (35.3-44.9); Hemoglobin 11.6 g/dL (11.5-15.4); Immature Granulocytes % 0.6 % (0-4); Mean Corpuscular HGB Conc 31.5 g/dL (31.6-35.5); Mean Corpuscular Hemoglobin 26.2 pg (28.0-33.3); Mean Corpuscular Volume 83.3 fL (83.0-100.0); Mean Platelet Volume 10.2 fL (9.4-12.4); Monocytes # 0.4 K/mcL (0.0-1.3); Neutrophils # 4.2 K/mcL (1.6-8.9); Platelet Count 228 K/mcL (140-400); Red Blood Count 4.42 M/mcL (3.82-4.97); Red Cell Distribution Width 15.2 % (11.5-14.5); Segmented Neutrophils % 60.9 %; White Blood Count 6.8 K/mcL (4.3-11.1)
[2018-12-13 22:31] LABS: Prothrombin Time 11.6 Seconds (9.4-12.1)
[2018-12-13 22:49] LABS: BUN/Creatinine Ratio 23 (6-26); Blood Urea Nitrogen 17 mg/dL (8-23); Calcium 9.2 mg/dL (8.6-10.3); Carbon Dioxide 20 mEq/L (23-29); Chloride 110 mEq/L (98-107); Glucose 106 mg/dL (70-105); Magnesium 2.3 mg/dL (1.6-2.6); Osmolality,Calculated 292 (280-300); Potassium 3.6 mEq/L (3.5-5.1); Sodium 140 mEq/L (136-145); eGFR For African Americans > 60 (> 60); eGFR For Non-African Americans > 60 (> 60)
[2018-12-13 22:55] LABS: Thyroid Stimulating Hormone 3.678 mcIU/mL (0.340-5.600)
--- NOTE | 2018-12-13 23:01 | Emergency Department Note ---
Disposition Clinical Impression: Facial numbness, Tingling of both upper extremities Disposition: Admitted As Inpatient Condition: Fair Referrals: Felix Flores DO [Primary Care Provider] - Forms: ED Satisfaction Letter Time of Disposition: : General Adult HPI - General Chief complaint: ED Neuro Symptoms/Deficit Stated complaint: possible stroke Time Seen by Provider: 12/13/18 22:00 Source: EMS Limitations: no limitations - History of Present Illness Pain Scale: 0 - Related Data Home Medications Medication Instructions Recorded Confirmed Alendronate Sodium [Fosamax] 70 mg PO MO 06/06/16 10/27/17 Aspirin [Lo-Dose Aspirin EC] 81 mg PO QAM 06/06/16 10/27/17 Calcium Carbonate [Calcium] 600 mg PO QAM 06/06/16 10/27/17 Diltiazem CD (24hr) [Cardizem CD] 120 mg PO QAM 06/06/16 10/27/17 Metoprolol XL (24 HR) Succ [Toprol 50 mg PO QAM 06/06/16 10/27/17 Xl] Multivitamin [One Daily Essential] 1 tab PO QAM 06/06/16 10/27/17 Simvastatin [Zocor] 10 mg PO QPM 06/06/16 10/27/17 levETIRAcetam [Levetiracetam] 1,000 mg PO QAM 06/06/16 10/27/17 levETIRAcetam [Levetiracetam] 500 mg PO QPM 06/06/16 10/27/17 Allergies Allergy/AdvReac Type Severity Reaction Status Date / Time No Known Allergies Allergy Verified 10/27/17 08:28 Past Medical History - Past Medical History Medical history: Reports: atrial fibrillation, CVA, hypertension, seizures, TIA Surgical history: Reports: herniorrhaphy, hip replacement, orthopedic, other Psychiatric history: Reports: no psych history [employer] history: Reports: no [employer] history - Social History Smoking Status: Never smoker Smokeless Tobacco Status: No Alcohol use: Reports: none Drug use: Reports: none Physical Exam - General Limitations: no limitations General appearance: alert, in no apparent distress Course Vital Signs Temperature 97.7 F 12/13/18 21:57 Pulse Rate 87 12/13/18 21:57 Respiratory Rate 20 12/13/18 21:57 Blood Pressure 133/85 12/13/18 21:57 O2 Sat by Pulse Oximetry 99 12/13/18 21:57 Temperature 97.7 F 12/13/18 21:57 Pulse Rate 87 12/13/18 21:57 Respiratory Rate 20 12/13/18 21:57 Blood Pressure 133/85 12/13/18 21:57 O2 Sat by Pulse Oximetry 99 12/13/18 21:57 Oxygen Delivery Oxygen Delivery Room Air Medical Decision Making - Lab Data Result diagrams: 12/13/18 22:07 12/13/18 22:07 Lab Results 12/13/18 12/13/18 12/13/18 Range/Units 22:07 22:07 22:07 WBC 6.8 (4.3-11.1) K/mcL RBC 4.42 (3.82-4.97) M/mcL Hgb 11.6 (11.5-15.4) g/dL Hct 36.8 (35.3-44.9) % MCV 83.3 (83.0-100.0) fL MCH 26.2 L (28.0-33.3) pg MCHC 31.5 L (31.6-35.5) g/dL RDW 15.2 H (11.5-14.5) % Plt Count 228 (140-400) K/mcL MPV 10.2 (9.4-12.4) fL Immature Gran % 0.6 (0-4) % Seg Neutrophils % 60.9 % Lymphocytes % 30.0 % Monocytes % 6.0 % Eosinophils % 1.8 % Basophils % 0.7 % Neutrophils # 4.2 (1.6-8.9) K/mcL Lymphocytes # 2.0 (0.6-4.6) K/mcL Monocytes # 0.4 (0.0-1.3) K/mcL Eosinophils # 0.1 (0.0-0.6) K/mcL Basophils # 0.1 (0.0-0.2) K/mcL PT 11.6 (9.4-12.1) Seconds INR 1.0 APTT 32.0 (26.0-36.0) Seconds Sodium 140 (136-145) mEq/L Potassium 3.6 (3.5-5.1) mEq/L Chloride 110 H (98-107) mEq/L Carbon Dioxide 20 L (23-29) mEq/L BUN 17 (8-23) mg/dL Creatinine 0.74 (0.60-1.20) mg/dL Est GFR ( Amer) > 60 (> 60) Est GFR (Non-Af Amer) > 60 (> 60) BUN/Creatinine Ratio 23 (6-26) Glucose 106 H (70-105) mg/dL Calculated Osmolality 292 (280-300) Calcium 9.2 (8.6-10.3) mg/dL Magnesium 2.3 (1.6-2.6) mg/dL TSH 3.678 (0.340-5.600) mcIU/mL Urine Color (Yellow) Urine Clarity (Clear) Urine pH (5.0-8.0) pH Units Ur Specific [place] (1.010-1.025) Urine Protein (Neg-Trace) mg/dL Urine Glucose (UA) (Normal) mg/dL Urine Ketones (Negative) mg/dL Urine Blood (Negative) Urine Nitrite (Negative) Urine Bilirubin (Negative) Urine Urobilinogen (Normal) mg/dL Ur Leukocyte Esterase (Negative) Urine Microscopic RBC (0-3) per hpf Urine Microscopic WBC (0-3) per hpf Ur Squamous Epith Cells (None-Few) per lpf Urine Bacteria (None-Few) per hpf Hyaline Casts (None-Few) per lpf Ur Culture Indicated? (NO) 12/13/18 Range/Units 23:34 WBC (4.3-11.1) K/mcL RBC (3.82-4.97) M/mcL Hgb (11.5-15.4) g/dL Hct (35.3-44.9) % MCV (83.0-100.0) fL MCH (28.0-33.3) pg MCHC (31.6-35.5) g/dL RDW (11.5-14.5) % Plt Count (140-400) K/mcL MPV (9.4-12.4) fL Immature Gran % (0-4) % Seg Neutrophils % % Lymphocytes % % Monocytes % % Eosinophils % % Basophils % % Neutrophils # (1.6-8.9) K/mcL Lymphocytes # (0.6-4.6) K/mcL Monocytes # (0.0-1.3) K/mcL Eosinophils # (0.0-0.6) K/mcL Basophils # (0.0-0.2) K/mcL PT (9.4-12.1) Seconds INR APTT (26.0-36.0) Seconds Sodium (136-145) mEq/L Potassium (3.5-5.1) mEq/L Chloride (98-107) mEq/L Carbon Dioxide (23-29) mEq/L BUN (8-23) mg/dL Creatinine (0.60-1.20) mg/dL Est GFR ( Amer) (> 60) Est GFR (Non-Af Amer) (> 60) BUN/Creatinine Ratio (6-26) Glucose (70-105) mg/dL Calculated Osmolality (280-300) Calcium (8.6-10.3) mg/dL Magnesium (1.6-2.6) mg/dL TSH (0.340-5.600) mcIU/mL Urine Color Yellow (Yellow) Urine Clarity Clear (Clear) Urine pH 7.5 (5.0-8.0) pH Units Ur Specific [place] 1.009 L (1.010-1.025) Urine Protein Negative (Neg-Trace) mg/dL Urine Glucose (UA) Normal (Normal) mg/dL Urine Ketones Negative (Negative) mg/dL Urine Blood Negative (Negative) Urine Nitrite Negative (Negative) Urine Bilirubin Negative (Negative) Urine Urobilinogen Normal (Normal) mg/dL Ur Leukocyte Esterase Small H (Negative) Urine Microscopic RBC 0-3 (0-3) per hpf Urine Microscopic WBC 5-15 H (0-3) per hpf Ur Squamous Epith Cells Few (None-Few) per lpf Urine Bacteria None Seen (None-Few) per hpf Hyaline Casts None Seen (None-Few) per lpf Ur Culture Indicated? YES A (NO) Attestation Statement - Attestation Attestation: I, Eric Ojeda DO, examined this patient [id number] and my medical decision-making was reviewed with Dr. Radha Balderas, Resident Physician. I agree with the documented findings, disposition and treatment plan as described except to the extent set forth below. I personally supervised and was present for the lemos/critical portions of the procedures completed by the resident documented below. Please see my progress notes for details. 72-year-old female presents by EMS for evaluation of right-sided facial numbness and tingling. Patient is symptoms started last night they resolved prior to arrival here to the emergency department. Patient has a history of for hemorrhagic strokes in the past. She is currently only on aspirin despite this issue. Patient was recently evaluated in surgical intervention on her left hip. She has had swelling in her legs since then. She denies any fevers or chills. She has not had any chest pain shortness of breath headache or vision change. She does not have any nausea vomiting or diarrhea. She has not fallen or injured herself. Patient was concerned because the tingling sensation. She discussed it with her today and they decided to come out to the em ergency room for evaluation. Patient is otherwise stable she has no acute neurologic deficits on exam. Cranial nerves II through XII are grossly intact and she has no signs of ataxia or abnormality. Patient answers questions appropriately. She has not an age stroke scale of 0 based on the described presentation of this time. Her head is atraumatic pupils are round reactive extraocular muscles are intact. Her oropharynx is patent her trachea is midline. Lungs are clear. Heart is regular. Abdomen is soft. She has no point tenderness guarding rigidity or peritoneal symptoms at this time. Extremities otherwise normal. No signs of pitting edema or abnormality. Left lower extremity is swollen but otherwise shows no acute asymmetry redness or warmth of this time that would be unexpected after surgery. Patient will have imaging completed the head along with screening labs EKG correlation studies and urinalysis. EKG is reviewed by myself in documented in the resident physician's note. Patient does have stable atrial fibrillation. Disposition pending full workup and treatment course. Patient and family both informed and they are comfortable this plan. No other acute issues noted at this time. See detailed documentation the physical exam, medical intervention, medical de cision-making disposition the resident physician's note. No critical care provider the patient's treatment course at this time. She does note that she has had similar issues to this in the past when she has had panic attacks or anxiety driven issues. 2315 Patient is becoming more and more anxious while she is here. She is a comminuted the labs and urinalysis. CT imaging of the head is unremarkable. Patient does have appropriate medical decision-making capacity. The is with her previous issues acting appropriately. The patient does not want to be admitted and does not want any further workup once urine is resulted. Patient will have urinalysis completed menopause is no other derangements patient will be discharged home at her request. Patient is otherwise stable at this time. The is comfortable with the plan. Labs otherwise unremarkable on CT imaging is stable. Disposition will most likely be home at the patient's request. 0100 Patient does not feel comfortable with the home. She knows considering that this may have been some aspect of a stroke. Patient now wants to be admitted. We offered the admission process early in the treatment course and on the patient does not feel comfortable to be discharged. Patient will be discussed with the hospitalist for admission process. Patient was discussed with the hospitalist Dr. Bartlett. Detailed review the presentation the symptoms the suspicion the most of this is anxiety driven was discussed at length. Patient will be admitted for TIA evaluation. Patient is otherwise stable. No other acute lab or vital sign abnormality noted during this treatment course. Patient will be monitored here in the emergency department until the admission process is completed.
[2018-12-13] MEDS ORDERED: *HR* LORazepam 0.5 MG TABLET PO ONE (23:29)
[2018-12-13 23:49] LABS: Bilirubin,Urine Negative (Negative); Blood,Urine Negative (Negative); Clarity,Urine Clear (Clear); Color,Urine Yellow (Yellow); Glucose,Urine (UA) Normal (Normal); Ketones,Urine Negative (Negative); Leukocyte Esterase,Urine Small (Negative); Nitrite,Urine Negative (Negative); PH,Urine 7.5 pH Units (5.0-8.0); Protein,Urine Negative (Neg-Trace); Specific Gravity,Urine 1.009 (1.010-1.025); Urobilinogen,Urine Normal (Normal)
[2018-12-13 23:52] LABS: Bacteria,Urine None Seen per hpf (None-Few); Hyaline Casts,Urine None Seen per lpf (None-Few); RBC,Urine 0-3 per hpf (0-3); Squamous Epithelial Cell,Urine Few per lpf (None-Few)
[2018-12-14] MEDS ORDERED: *HR* LORazepam 2 MG/ML VIAL IM ONE (00:28)
[2018-12-14] MEDS ORDERED: Naloxone 0.4 MG/ML INJ IVP PRN (04:57)
--- NOTE | 2018-12-14 05:15 | Internal Med History&Physical ---
Date of Encounter: 12/14/18 Time of Encounter: 03:00 Internal Medicine - H&P: HPI Chief complaint: Paresthesia Admitted From: Home Plans for Post Hospital Care: Home History of present illness: Ms. Cummings is a 73 year old female with past medical history significant for hemorrhagic stroke, TIA, hypertension, atrial fibrillation, and seizures who presents for complaints of facial and bilateral upper extremity paresthesia that started last night and resolved prior to arrival to ER. Denies any other associated symptoms. Denies any alleviating or exacerbating factors. Denies any treatment prior to arrival, states symptoms resolved spontaneously. Also reports she feels like she has been feeling more anxious than normal lately, but has never been formerly diagnosed or treated for anxiety. Patient initially was going to be discharged home but then was agreeable to be admitted. was with patient during symptoms and denies any other associated symptoms that he noticed. ER obtained head CT which showed no acute intracranial abnormality. ER reported EKG as atrial fibrillation with no significant changes when compared with previous on file. Patient received Ativan while in ER for anxiety which she reports was effective. Currently she denies any headache, numbness, tingling, dizziness, chest pain, shortness of breath, cough, abdominal pain, nausea, bowel or bladder changes. Reports following regularly with her PCP, cardiology, and neurology. Reports history of seizures but reports it has been around 5 years since her last. Also reports having left hip replacement recently at [facility] in [place], [place] and has been doing well with the replacement. Had echocardiogram completed in September 2018 in anticipation of her hip surgery showing a 50% EF. Most recent brain MRI on file was from November 2017 showing stable appearance with stable chronic hemorrhagic infarcts and [place] of microhemorrhages, no new or acute findings, cerebral atrophy, and moderate chronic small vessel ischemic changes. Most recent carotid artery duplex was completed in May 2016 which showed bilateral carotid arteries normal throughout. Past Med Surg Social Fam HX - Past Medical History Medical history: arthritis, atrial fibrillation, CVA, hypertension, seizures, TIA Additional medical history: Brain bleed x4 Psychiatric history: anxiety - Past Surgical History Surgical History: herniorrhaphy, orthopedic, other Additional surgical history: Cardiac ablation, R shoulder sx, R trigger thumb surgery, left hip - Social History Smoking Status: Never smoker Smokeless Tobacco Status: No Alcohol use: none Drug use: none - Family History Mother Living Status: Hx Family Cancer: Yes (Brain tumor) Hx Family Neurologic Disorders: Yes (dementia) Father Living Status: Cause of : Kidney failure Internal Medicine - H&P: Meds Aspirin [Lo-Dose Aspirin EC] 325 mg PO QAM 06/06/16 [History] Calcium Carbonate [Calcium] 600 mg PO QAM 06/06/16 [History] Diltiazem CD (24hr) [Cardizem CD] 120 mg PO QAM 06/06/16 [History] Metoprolol XL (24 HR) Succ [Toprol Xl] 50 mg PO QAM 06/06/16 [History] Multivitamin [One Daily Essential] 1 tab PO QAM 06/06/16 [History] Simvastatin [Zocor] 10 mg PO QPM 06/06/16 [History] levETIRAcetam [Levetiracetam] 1,000 mg PO BID 06/06/16 [History] Allergy/AdvReac Type Severity Reaction Status Date / Time No Known Allergies Allergy Verified 10/27/17 08:28 All Systems PM: A 10-system review of systems was performed and is negative for pertinent findings except as documented above in the HPI. - Constitutional Vitals: Temp Pulse Resp BP Pulse Ox 97.8 F 64 15 123/80 99 12/14/18 02:37 12/14/18 02:37 12/14/18 02:37 12/14/18 02:37 12/14/18 02:37 Exam: General: Alert and oriented. In no acute distress. Skin:Normal color, no rash. Dry and intact surgical incision with dressing noted to left hip area. Slight bruising noted to area as well. HEENT:Pupils equal, round and reactive. Cardiovascular: Irregular heartbeat, no rubs, murmurs or gallops. No JVD. Pulse irregular. Lungs:Normal breath sounds, no wheezes or crackles. Abdomen:Soft, non-tender, no rigidity. Extremities:No deformity, tenderness, or clubbing. Slight swelling noted around left hip surgical area, distal PMS intact. Neurological:Normal cognition and motor skills. NIHSS 0. GCS 15. Pulses:Carotid and radial pulses normal +2. Rest of the physical exam is non contributory. Internal Med - H&P Results - Labs CBC & Chem 7: 12/13/18 22:07 12/13/18 22:07 Labs: Short CBC 12/13/18 Range/Units 22:07 WBC 6.8 (4.3-11.1) K/mcL Hgb 11.6 (11.5-15.4) g/dL Hct 36.8 (35.3-44.9) % Plt Count 228 (140-400) K/mcL Neutrophils # 4.2 (1.6-8.9) K/mcL BMP 12/13/18 22:07 Sodium 140 Potassium 3.6 Chloride 110 H Carbon Dioxide 20 L BUN 17 Creatinine 0.74 Glucose 106 H Calcium 9.2 Urine 12/13/18 Range/Units 23:34 Urine Color Yellow (Yellow) Urine Clarity Clear (Clear) Urine pH 7.5 (5.0-8.0) pH Units Ur Specific [place] 1.009 L (1.010-1.025) Urine Protein Negative (Neg-Trace) mg/dL Urine Glucose (UA) Normal (Normal) mg/dL - Impressions ITS Impressions Head CT 12/13/18 22:17 IMPRESSION: No acute intracranial abnormality. D/ / Darrin Dinero / Darrin Dinero Interpreting Provider: Darrin Dinero - Assessment and Plan (1) Paresthesia Current Visit: Yes Status: Acute Assessment and plan: Presented for complaints of facial and bilateral upper extremity paresthesia that resolved prior to arrival. ER obtained CT of head which showed no acute intracranial abnormality. Continuous cardiac monitoring. Neuro checks. Neurology consult ordered for further recommendations given history and unusual presentation, will need called in a.m. (2) Abnormal urinalysis Current Visit: Yes Status: Acute Assessment and plan: UA obtained in ER showed small leukocyte esterase and white blood cells. Patient denies any urinary changes. We will hold off on antibiotics for now. Urine culture pending. (3) Anxiety Current Visit: Yes Status: Acute Assessment and plan: Reports feeling more anxious as of lately. Denies ever being formally diagnosed or treated for anxiety. Feels that her symptoms could possibly be related to anxiety. Received Ativan while in ER which she reports improved her anxiety symptoms. Will need follow-up for anxiety at discharge. (4) Atrial fibrillation Current Visit: No Status: Chronic Assessment and plan: Continuous cardiac monitoring ordered. Rate currently controlled. Continue home medications once verified. Qualifiers: Atrial fibrillation type: chronic Qualified Code(s): I48.2 - Chronic atrial fibrillation - Time Spent With Patient Total time spent is greater than 50% in coordination of care (as documented) at patient's floor/unit and/or counseling patient:
[2018-12-14 06:18] LABS: Hematocrit 36.3 % (35.3-44.9); Hemoglobin 11.5 g/dL (11.5-15.4); Mean Corpuscular HGB Conc 31.7 g/dL (31.6-35.5); Mean Corpuscular Hemoglobin 26.5 pg (28.0-33.3); Mean Corpuscular Volume 83.6 fL (83.0-100.0); Mean Platelet Volume 10.3 fL (9.4-12.4); Platelet Count 234 K/mcL (140-400); Red Blood Count 4.34 M/mcL (3.82-4.97); Red Cell Distribution Width 15.3 % (11.5-14.5)
[2018-12-14 06:39] LABS: BUN/Creatinine Ratio 21 (6-26); Blood Urea Nitrogen 13 mg/dL (8-23); Calcium 8.6 mg/dL (8.6-10.3); Carbon Dioxide 24 mEq/L (23-29); Chloride 108 mEq/L (98-107); Glucose 105 mg/dL (70-105); Osmolality,Calculated 292 (280-300); Potassium 3.9 mEq/L (3.5-5.1); Sodium 141 mEq/L (136-145); eGFR For African Americans > 60 (> 60); eGFR For Non-African Americans > 60 (> 60)
[2018-12-14] MEDS ORDERED: Diltiazem CD (24hr) 120 MG CAPSULE PO SCH (09:00)
[2018-12-14] MEDS ORDERED: levETIRAcetam 250 MG TABLET PO SCH (09:00)
[2018-12-14] MEDS ORDERED: Multivit/Ca/Min/Fe/FA 1 TAB TABLET PO SCH (09:00)
[2018-12-14] MEDS ORDERED: Metoprolol XL (24 HR) Succ 50 MG TAB.ER.24H PO SCH (09:00)
[2018-12-14] MEDS ORDERED: Aspirin Enteric Coated 325 MG Tablet PO SCH (09:00)
--- NOTE | 2018-12-14 10:01 | Neurology - Consult Note ---
<Chandler Puga M - Last Filed: 12/14/18 11:03> Date of Encounter: 12/14/18 Time of Encounter: 08:35 Assessment and Plan (1) Anxiety Current Visit: Yes Status: Acute Neurological exam within normal limits. Patients clinical picture fits with anxiety and possible panic disorder. Recommend Lexapro 10mg for managing anxiety and Hydroxyzine 50mg as needed. Discussed risks and benefits as well as most common side effects of Lexapro and Hydroxyzine. Patient has agreed to trial of Lexapro and Hydroxyzine. Further evaluation in the outpatient setting would be appropriate for differentiating Generalized Anxiety Disorder vs Panic Disorder given her presentation of restlessness, sleep disturbance and hyperventilation off and on over the past 5 years. Will review results of MRI. Discussed case with Attending Neurologist. (2) Tingling of both upper extremities Current Visit: Yes Status: Acute History of Present Illness Chief complaint: "Face tingling" HPI: Ms. Cummings is a 73 year old female with PMH of hemorrhagic CVA, A fib, and Seizures admitted from the ED for facial numbness with bilateral upper extremity tingling. She admits to similar episodes in the past. She states that she gets "fidgety and restless" at night at least once a week for the past 4 years. She states that during these restless episode she becomes short of breath and sometimes worries she might hyperventilate. She admits to an episode similar to this yesterday around 5pm which lasted approximately 45 minutes, she became short of breath and then developed numbness in her face and bilateral upper extremities. She denied noticing any weakness. Her was present at bedside and denied noticing any facial droop, or slurred speech at time of this episode. She denies nausea, dizziness, changes in vision or hearing, or loss of bowel or bladder function. Past Med Surg Social Fam HX - Past Medical History Medical history: arthritis, atrial fibrillation, CVA (Chart review reveals two previous hemorrhagic CVA's from 06/2010, and 05/2013. Patient also reports a hemorrhagic CVA from 10/2013. ), hypertension, seizures (Patient reports unknown history of seizures. She admits to being evaluated for them in the past but does not recall whether or not she has ever been diagnosed with seizures. ), TIA Additional medical history: Brain bleed x4 Psychiatric history: anxiety (Patient complaining of persistent anxiety which appears to be worsening. First noticed anxiety symptoms shortly after her 2013 stroke. ) - Past Surgical History Surgical History: herniorrhaphy, orthopedic, other Additional surgical history: Cardiac ablation, R shoulder sx, R trigger thumb surgery, left hip - Social History Smoking Status: Never smoker Smokeless Tobacco Status: No Alcohol use: none Drug use: none - Family History Mother Living Status: Hx Family Cancer: Yes (Brain tumor) Hx Family Neurologic Disorders: Yes (dementia) Father Living Status: Cause of : Kidney failure Medications and Allergies Aspirin [Lo-Dose Aspirin EC] 325 mg PO QAM 06/06/16 [History] Calcium Carbonate [Calcium] 600 mg PO QAM 06/06/16 [History] Diltiazem CD (24hr) [Cardizem CD] 120 mg PO QAM 06/06/16 [History] Metoprolol XL (24 HR) Succ [Toprol Xl] 50 mg PO QAM 06/06/16 [History] Multivitamin [One Daily Essential] 1 tab PO QAM 06/06/16 [History] Simvastatin [Zocor] 10 mg PO QPM 06/06/16 [History] levETIRAcetam [Levetiracetam] 1,000 mg PO BID 06/06/16 [History] Allergy/AdvReac Type Severity Reaction Status Date / Time No Known Allergies Allergy Verified 10/27/17 08:28 All Systems: The remainder of the systems were reviewed and are negative - Constitutional Constitutional ROS IM: no chills, no excessive sweating, no fever(s), no headache(s) - Nose, Mouth, Throat Nose, mouth and throat: no abnormal hearing, no disequilibrium, no dizziness, no dysphagia, no headache(s), no vertigo - Cardiovascular Cardiovascular ROS IM: no chest pain, no claudication, no edema - Respiratory Respiratory IM: no cough, no dyspnea, no stridor - Gastrointestinal Gastrointestinal: no abdominal pain, no cramping, no diarrhea - Genitourinary Genitourinary ROS: no abnormal meses, no abnormal vaginal bleeding, no difficulty voiding - Musculoskeletal Musculoskeletal ROS IM: no abnormal gait, no arthralgias - Integumentary Integumentary IM: no acne, no alopecia, no swelling - Neurological Neurological ROS: tingling (patient reports tingling in bilateral upper extremities and face which occurred yesterday for 45 minutes), no abnormal gait, no abnormal hearing, no abnormal movements, no abnormal speech, no confusion, no disequilibrium, no focal weakness, no loss of vision, no weakness - Psychiatric Psychiatric general PM: abnormal sleep pattern, anxiety, panic attacks, no auditory hallucinations, no behavioral changes, no suicidal ideation, no visual hallucinations - Allergic/Immunologic Allergic/Immunologic ROS PM: no tongue swelling, no throat swelling, no itchy eyes Physical Examination - Vital Signs Vital Signs: Initial Vital Signs Temp Pulse Resp BP Pulse Ox 97.7 F 87 20 133/85 99 12/13/18 21:57 12/13/18 21:57 12/13/18 21:57 12/13/18 21:57 12/13/18 21:57 - Constitutional General appearance: comfortable - Neurologic Sensorimotor examination: intact Motor examination - right side: 09/19: deltoids, biceps, triceps, wrist flexion, wrist extension, defensive line coach, hip flexors, tibialis Anterior, quadriceps, toe extension (EHL), plantarflexion Motor examination - left side: 09/19: deltoids, biceps, triceps, wrist flexion, wrist extension, hip flexors, defensive line coach, quadriceps, tibialis Anterior, toe extension (EHL), plantarflexion Detailed sensory examination: intact Reflex and gait examination: normal gait Reflexes: Biceps: 2+, Triceps: 2+, Brachioradialis: 2+, Patella: 2+, Achilles: 2+ Mental Status Examination: awake, alert, oriented to person, oriented to place, oriented to time, follows commands appropriately, no agnosia, no aphasia, no aproxia, makes eye contact Cranial nerve examination: PERRL, EOMI, visual joyce intact, sensory to face intact, no facial asymmetry is present, no dysarthria, hearing is intact symmetrically, flexes SCM and trapezius muscles symmetrically with full power, no atrophy or facial fasiculations present Cerebellar examination: no dysmetria, performs finger to nose and heel to teague symmetrically without ataxia, no gait ataxia, no truncal ataxia, no difficulty with rapid alternating movements Results - Laboratory Findings CBC and BMP: 12/14/18 05:38 12/14/18 05:38 Abnormal lab findings: Abnormal lab results MCH 26.5 pg (28.0-33.3) L 12/14/18 05:38 MCHC 31.5 g/dL (31.6-35.5) L 12/13/18 22:07 RDW 15.3 % (11.5-14.5) H 12/14/18 05:38 Chloride 108 mEq/L (98-107) H 12/14/18 05:38 Carbon Dioxide 20 mEq/L (23-29) L 12/13/18 22:07 Glucose 106 mg/dL (70-105) H 12/13/18 22:07 Ur Specific [place] 1.009 (1.010-1.025) L 12/13/18 23:34 Ur Leukocyte Esterase Small (Negative) H 12/13/18 23:34 Urine Microscopic WBC 5-15 per hpf (0-3) H 12/13/18 23:34 Ur Culture Indicated? YES (NO) A 12/13/18 23:34 Consult Discharge Plan - Plan Referrals: Felix Flores DO [Primary Care Provider] - <Catherine Guardado I - Last Filed: 12/14/18 16:14> Date of Encounter: 12/14/18 Assessment and Plan (1) Anxiety Current Visit: Yes Status: Acute Pt was seen and examined, my medical decision was reviewed with the Resident Physician, I agree with the documented findings, disposition and treatment plan, as described except to the extent set forth below This time recommend workup for anti-anxiety it medication. CT scan is negative No Abnormal finding on neurological examination Other workup is as per primary team Catherine Guardado MD History of Present Illness HPI: Ms. Cummings is a 73 year old female All Systems: The remainder of the systems were reviewed and are negative Physical Examination - Vital Signs Vital Signs: Initial Vital Signs Temp Pulse Resp BP Pulse Ox 97.7 F 87 20 133/85 99 12/13/18 21:57 12/13/18 21:57 12/13/18 21:57 12/13/18 21:57 12/13/18 21:57 Results - Laboratory Findings CBC and BMP: 12/14/18 05:38 12/14/18 05:38 Abnormal lab findings: Abnormal lab results MCH 26.5 pg (28.0-33.3) L 12/14/18 05:38 MCHC 31.5 g/dL (31.6-35.5) L 12/13/18 22:07 RDW 15.3 % (11.5-14.5) H 12/14/18 05:38 Chloride 108 mEq/L (98-107) H 12/14/18 05:38 Carbon Dioxide 20 mEq/L (23-29) L 12/13/18 22:07 Glucose 106 mg/dL (70-105) H 12/13/18 22:07 Ur Specific [place] 1.009 (1.010-1.025) L 12/13/18 23:34 Ur Leukocyte Esterase Small (Negative) H 12/13/18 23:34 Urine Microscopic WBC 5-15 per hpf (0-3) H 12/13/18 23:34 Ur Culture Indicated? YES (NO) A 12/13/18 23:34
[2018-12-14] MEDS ORDERED: hydrOXYzine pamoate 25 MG CAPSULE PO PRN (11:17)
--- NOTE | 2018-12-14 14:31 | Discharge Summary ---
- NOTES TO OUTPATIENT PROVIDER Notes to Outpatient Provider: f/u with PCP in one week. Orders not resulted at time of discharge: Pending orders 12/13/18 23:34 Culture,Urine [RM] Stat Date of Encounter: 12/14/18 Time of Encounter: 14:19 - Discharge Diagnosis (1) Paresthesia Priority: Primary Status: Acute (2) Anxiety Priority: Primary Status: Acute (3) Atrial fibrillation Priority: Secondary Status: Chronic Qualifiers: Atrial fibrillation type: chronic Qualified Code(s): I48.2 - Chronic atrial fibrillation (4) Abnormal urinalysis Priority: Secondary Status: Ruled-out Hospital course: Ms. Cummings is a 73 year old female with past medical history significant for hemorrhagic stroke, TIA, hypertension, atrial fibrillation, and seizures who presented to ER with complaints of facial and bilateral upper extremity paresthesia that started last night and resolved prior to arrival to ER. Denies any other associated symptoms. In the ER her head CT showed no acute intracranial abnormality. She was admitted in the hospital and placed her on cardiac catheterization technician. She denied any more parasthesia symptoms. Her Brain MRI showed small area of DWI signal within right frontal lobe without corresponding ADC abnormality which could represent subacute, or early chronic infarct. She was evaluated by neurologist, who suggested her current symptoms could be due to anxiety / panic attack. Neuro recommended to start her on Lexapro 10mg. So will d/c her home in stable condition today. - Time Spent with Patient Total time spent providing and/or coordinating discharge services: Time spent: D/C greater than 8 hours after Admission (I provided exkg-iw-[id number] service to this patient more than 8 hrs apart since pt got admitted in the hospital by my colleague.) - Discharge Medications Prescriptions: Continued Simvastatin [Zocor] 10 mg PO QPM Multivitamin [One Daily Essential] 1 tab PO QAM levETIRAcetam [Levetiracetam] 1,000 mg PO BID Diltiazem CD (24hr) [Cardizem CD] 120 mg PO QAM Metoprolol XL (24 HR) Succ [Toprol Xl] 50 mg PO QAM Calcium Carbonate [Calcium] 600 mg PO QAM Aspirin [Lo-Dose Aspirin EC] 325 mg PO QAM Home Medications: Aspirin [Lo-Dose Aspirin EC] 325 mg PO QAM 06/06/16 [History] Calcium Carbonate [Calcium] 600 mg PO QAM 06/06/16 [History] Diltiazem CD (24hr) [Cardizem CD] 120 mg PO QAM 06/06/16 [History] Metoprolol XL (24 HR) Succ [Toprol Xl] 50 mg PO QAM 06/06/16 [History] Multivitamin [One Daily Essential] 1 tab PO QAM 06/06/16 [History] Simvastatin [Zocor] 10 mg PO QPM 06/06/16 [History] levETIRAcetam [Levetiracetam] 1,000 mg PO BID 06/06/16 [History] Allergies/Adverse Reactions: Allergy/AdvReac Type Severity Reaction Status Date / Time No Known Allergies Allergy Verified 10/27/17 08:28 Date of admission: 12/14/18 01:42 Primary care physician: Felix Flores DO Consults: 12/14/18 05:01 Consult to Neurology [CONS] Routine Consulting Provider: Neurology [facility] Reason for Consult: Presents for facial and bilateral upper extremity paresthesia starting last night and was resolved upon presentation to ER. Has history of for hemorrhagic strokes and TIA. Follows regularly with [facility]. Call Completed: No - Constitutional Vitals: Temp Pulse Resp BP Pulse Ox 97.9 F 80 15 129/71 98 12/14/18 11:30 12/14/18 11:30 12/14/18 11:30 12/14/18 11:30 12/14/18 11:30 General appearance: Present: cooperative, A&O X 3, answers questions appropriately Exam: Gen: Alert, awake, Oriented to time,place and person Chest: Diminished breath sounds B/L, No wheezing, No crackles, No rales Heart: S1S2+ RRR No murmurs Abd: Soft, NT, BS +, No organomegaly Ext: No edema, pulses are palpable, No calf tenderness Neuro : No acute focal neuro deficits noticed Skin: No rash. - Patient Status Disposition: Home, Self-Care Condition: Good Overall status at discharge: patient is back to baseline - Discharge Instructions Instructions: Transient Ischemic Attack (DC), Anxiety (DC) Follow Up With: Felix Flores DO [Primary Care Provider] - - Diet and Activity Activity: increase activity as tolerated Diet: low salt diet
[2018-12-14 15:19] VITALS: BP 114/63
--- NOTE | 2018-12-14 16:25 | Electrocardiograph Report ---
[place] [id number] Test Date: 2018-12-13 Pat Name: Gale Cummings Department: [id number] Room: 3B41 Gender: F Industrial Electrician Journeyman: : 1945 Requested By: Radha Balderas Order Number: [id number] Reading MD: Leda Young Measurements Intervals [place] Rate: 86 P: MO: QRS: 8 QRSD: 88 T: -8 QT: 385 QTc: 461 Interpretive Statements Atrial fibrillation Low voltage, precordial leads Nonspecific ST-T wave changes Electronically Signed On 12-14-2018 16:23:53 EDT by Leda Young
== END 2018-12-14 20:56 | disposition home or self-care (01) ==
LOC: 3BNU 21:49 → EMEROOARM 21:49 → SUATTDRO 12-14 01:42 → 3BNU 12-14 02:25
PROVIDERS: ADMIT Family Medicine; ATTEND Family Medicine

== ENCOUNTER 2019-03-18 21:12 | Observation (INO) ==
[2019-03-18 21:48] LABS: Basophils # 0.1 K/mcL (0.0-0.2); Basophils % 1.3 %; Eosinophils # 0.1 K/mcL (0.0-0.6); Eosinophils % 2.3 %; Hematocrit 39.4 % (35.3-44.9); Hemoglobin 13.2 g/dL (11.5-15.4); Immature Granulocytes % 0.5 % (0-4); Lymphocytes # 2.6 K/mcL (0.6-4.6); Lymphocytes % 46.4 %; Mean Corpuscular HGB Conc 33.5 g/dL (31.6-35.5); Mean Corpuscular Hemoglobin 26.7 pg (28.0-33.3); Mean Corpuscular Volume 79.6 fL (83.0-100.0); Mean Platelet Volume 10.8 fL (9.4-12.4); Monocytes # 0.5 K/mcL (0.0-1.3); Monocytes % 8.4 %; Neutrophils # 2.3 K/mcL (1.6-8.9); Platelet Count 221 K/mcL (140-400); Red Blood Count 4.95 M/mcL (3.82-4.97); Red Cell Distribution Width 16.3 % (11.5-14.5); Segmented Neutrophils % 41.1 %; White Blood Count 5.6 K/mcL (4.3-11.1)
[2019-03-18 22:10] LABS: BUN/Creatinine Ratio 32 (6-26); Blood Urea Nitrogen 25 mg/dL (8-23); Calcium 9.1 mg/dL (8.6-10.3); Carbon Dioxide 26 mEq/L (23-29); Chloride 103 mEq/L (98-107); Glucose 119 mg/dL (70-105); Osmolality,Calculated 294 (280-300); Potassium 3.9 mEq/L (3.5-5.1); Sodium 139 mEq/L (136-145); Troponin I < 0.03 ng/mL (< 0.04); eGFR For African Americans > 60 (> 60); eGFR For Non-African Americans > 60 (> 60)
[2019-03-18 23:42] LABS: Bilirubin,Urine Negative (Negative); Blood,Urine Negative (Negative); Clarity,Urine Cloudy (Clear); Color,Urine Yellow (Yellow); Glucose,Urine (UA) Normal (Normal); Ketones,Urine Negative (Negative); Leukocyte Esterase,Urine Trace (Negative); Nitrite,Urine Negative (Negative); Protein,Urine Negative (Neg-Trace); Specific Gravity,Urine 1.007 (1.010-1.025); Urobilinogen,Urine Normal (Normal)
[2019-03-19 00:01] LABS: Amorphous Sediment,Urine Few (Few); Squamous Epithelial Cell,Urine Few per lpf (None-Few)
[2019-03-19] MEDS ORDERED: Naloxone 0.4 MG/ML INJ IVP PRN (05:27)
[2019-03-19 07:00] LABS: BUN/Creatinine Ratio 28 (6-26); Blood Urea Nitrogen 18 mg/dL (8-23); Calcium 8.9 mg/dL (8.6-10.3); Carbon Dioxide 28 mEq/L (23-29); Chloride 105 mEq/L (98-107); Glucose 87 mg/dL (70-105); Osmolality,Calculated 289 (280-300); Potassium 3.5 mEq/L (3.5-5.1); Sodium 139 mEq/L (136-145); eGFR For African Americans > 60 (> 60); eGFR For Non-African Americans > 60 (> 60)
[2019-03-19 07:03] LABS: Basophils # 0.1 K/mcL (0.0-0.2); Eosinophils # 0.2 K/mcL (0.0-0.6); Eosinophils % 2.9 %; Hematocrit 41.6 % (35.3-44.9); Hemoglobin 13.1 g/dL (11.5-15.4); Immature Granulocytes % 0.2 % (0-4); Lymphocytes # 2.1 K/mcL (0.6-4.6); Lymphocytes % 41.1 %; Mean Corpuscular HGB Conc 31.5 g/dL (31.6-35.5); Mean Corpuscular Hemoglobin 25.7 pg (28.0-33.3); Mean Corpuscular Volume 81.7 fL (83.0-100.0); Mean Platelet Volume 10.8 fL (9.4-12.4); Monocytes # 0.5 K/mcL (0.0-1.3); Monocytes % 10.2 %; Neutrophils # 2.3 K/mcL (1.6-8.9); Platelet Count 201 K/mcL (140-400); Red Blood Count 5.09 M/mcL (3.82-4.97); Red Cell Distribution Width 16.1 % (11.5-14.5); Segmented Neutrophils % 44.6 %; White Blood Count 5.2 K/mcL (4.3-11.1)
[2019-03-19 10:48] VITALS: BP 135/77
[2019-03-19] MEDS ORDERED: levETIRAcetam 250 MG TABLET PO SCH (13:00)
== END 2019-03-19 14:49 | disposition home or self-care (01) ==
LOC: 3BNU 21:12 → EMEROOARM 21:12 → SUATTDRO 03-19 01:26 → 3BNU 03-19 01:40
PROVIDERS: ADMIT Family Medicine; ATTEND Internal Medicine

== ENCOUNTER 2019-03-28 21:54 | Observation (INO) ==
[2019-03-28 22:14] LABS: Hematocrit 42.6 % (35.3-44.9); Mean Corpuscular HGB Conc 32.9 g/dL (31.6-35.5); Mean Corpuscular Hemoglobin 26.3 pg (28.0-33.3); Mean Corpuscular Volume 79.9 fL (83.0-100.0); Mean Platelet Volume 10.3 fL (9.4-12.4); Platelet Count 205 K/mcL (140-400); Red Blood Count 5.33 M/mcL (3.82-4.97); Red Cell Distribution Width 16.4 % (11.5-14.5); White Blood Count 5.9 K/mcL (4.3-11.1)
[2019-03-28 22:22] LABS: Prothrombin Time 11.2 Seconds (9.4-12.1)
[2019-03-28 22:24] LABS: Activated Partial Thrombo Time 30.5 Seconds (26.0-36.0)
[2019-03-28 22:29] LABS: BUN/Creatinine Ratio 37 (6-26); Blood Urea Nitrogen 23 mg/dL (8-23); Calcium 9.5 mg/dL (8.6-10.3); Carbon Dioxide 26 mEq/L (23-29); Chloride 102 mEq/L (98-107); Glucose 84 mg/dL (70-105); Osmolality,Calculated 287 (280-300); Sodium 137 mEq/L (136-145); eGFR For African Americans > 60 (> 60); eGFR For Non-African Americans > 60 (> 60)
[2019-03-28 22:40] LABS: Troponin I < 0.03 ng/mL (< 0.04)
[2019-03-29] MEDS ORDERED: Aspirin 325 MG TABLET PO ONE (00:05)
[2019-03-29] MEDS ORDERED: Acetaminophen 325 MG TABLET PO PRN (00:11)
[2019-03-29] MEDS: *HR* Heparin 5,000 UNIT/ML VIAL SQ SCH ×2 (06:22→19:35)
[2019-03-29] MEDS: Aspirin 81 MG TAB.CHEW PO SCH (08:36)
[2019-03-29] MEDS: levETIRAcetam 250 MG TABLET PO SCH ×2 (08:36→20:05)
[2019-03-29] MEDS: Multivit/Ca/Min/Fe/FA 1 TAB TABLET PO SCH (08:36)
[2019-03-29] MEDS ORDERED: Diltiazem CD (24hr) 120 MG CAPSULE PO SCH (09:00)
[2019-03-29] MEDS ORDERED: Metoprolol XL (24 HR) Succ 50 MG TAB.ER.24H PO SCH (09:00)
[2019-03-30] MEDS: *HR* Heparin 5,000 UNIT/ML VIAL SQ SCH (06:06)
[2019-03-30 07:00] VITALS: BP 134/85
[2019-03-30] MEDS: Multivit/Ca/Min/Fe/FA 1 TAB TABLET PO SCH (08:01)
[2019-03-30] MEDS: levETIRAcetam 250 MG TABLET PO SCH (08:01)
[2019-03-30] MEDS: Aspirin 81 MG TAB.CHEW PO SCH (08:01)
== END 2019-03-30 13:35 | disposition home or self-care (01) ==
LOC: EMEROOARM 21:54 → 2NENU 21:54 → SUATTDRO 23:37 → 2NENU 03-29 00:06
PROVIDERS: ADMIT Internal Medicine; ATTEND Internal Medicine